=== PATIENT | male | born 1990 | race African-American/Black ===

== ENCOUNTER 2017-05-10 09:02 | Emergency (ER) | payer BC, OTHER ==
[2017-05-10 09:09] VITALS: TEMP 97.8
[2017-05-10] MEDS ORDERED: ACETAMINOPHEN TAB 500 MG TAB PO STA (09:32)
[2017-05-10] MEDS ORDERED: IBUPROFEN 600 MG TAB PO STA (09:32)
[2017-05-10] MEDS ORDERED: DIPH,PERTUS(ACELL)TETVAC-LF 0.5 ML VIAL IM ONE (09:44)
[2017-05-10 10:03] LABS: Appearance,Urine Cloudy (Clear); Bilirubin,Urine Negative (Negative); Blood,Urine Negative (Negative); Color,Urine Yellow; Glucose,Urine (UA) Negative (Negative); Ketones,Urine Negative (Negative); Leukocyte Esterase,Urine Negative (Negative); Mucus,Urine Few /hpf; Nitrite,Urine Negative (Negative); PH, Urine 5.5 (5.0-8.0); Protein,Urine Trace (Negative); RBC,Urine 2 /hpf (0-5); Specific Gravity,Urine 1.013 (1.001-1.035); Urobilinogen,Urine <2.0 mg/dL (<2.0); WBC,Urine 1 /hpf (0-5)
--- NOTE | 2017-05-10 10:57 | XR ---
EXAMINATION TYPE: XR Hip Bilateral and AP pelvis , 5 VIEWS DATE OF EXAM ORDERED: 05/10/2017 HISTORY: Pain. COMPARISON: None. FINDINGS: Osseous structures about the pelvis are normal. No fracture or dislocation is noted about the hips. IMPRESSION: NO ACUTE OSSEOUS LESION.
--- NOTE | 2017-05-10 10:58 | XR ---
EXAMINATION TYPE: XR knee complete LT , 3 VIEWS DATE OF EXAM ORDERED: 05/10/2017 HISTORY: Pain. COMPARISON: None. FINDINGS: No fracture, dislocation or knee joint effusion is seen. IMPRESSION: NO ACUTE OSSEOUS LESION.
--- NOTE | 2017-05-10 10:59 | XR ---
EXAMINATION TYPE: XR lumbosacral spine min 4V , 5 VIEWS DATE OF EXAM ORDERED: 05/10/2017 HISTORY: Pain. COMPARISON: None. FINDINGS: There is a gentle levoscoliosis. Vertebral body height and alignment are maintained. There is no spondylolysis or spondylolisthesis. N o fractures are seen. The facets are unremarkable. The pedicles are intact. IMPRESSION: NO ACUTE OSSEOUS LESION.
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
[2017-05-10 11:41] VITALS: BP 116/70; PULSE 72; RESP 18
== END 2017-05-10 11:42 | disposition home or self-care (01) ==
LOC: EC 09:02
DX: T14.8XXA Other injury of unspecified body region, initial encounter (principal); S70.212A Abrasion, left hip, initial encounter; S80.212A Abrasion, left knee, initial encounter; S00.31XA Abrasion of nose, initial encounter; M54.5 Low back pain; F17.200 Nicotine dependence, unspecified, uncomplicated; Z88.0 Allergy status to penicillin; Z53.29 Procedure and treatment not carried out because of patient's decision for other reasons; V03.90XA Pedestrian on foot injured in collision with car, pick-up truck or van, unspecified whether traffic or nontraffic accident, initial encounter; Y92.89 Other specified places as the place of occurrence of the external cause
CPT/HCPCS: 72110; 73521; 81001; 99284

== ENCOUNTER 2017-05-12 11:00 | Emergency (ER) | payer BC, OTHER ==
[2017-05-12 11:23] VITALS: BP 106/63; PULSE 76; RESP 20; TEMP 98
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
== END 2017-05-12 12:37 | disposition home or self-care (01) ==
LOC: EC 11:00
DX: S70.02XD Contusion of left hip, subsequent encounter (principal); Z88.0 Allergy status to penicillin; F17.200 Nicotine dependence, unspecified, uncomplicated; V03.90XD Pedestrian on foot injured in collision with car, pick-up truck or van, unspecified whether traffic or nontraffic accident, subsequent encounter; Y92.410 Unspecified street and highway as the place of occurrence of the external cause
CPT/HCPCS: 99282

== ENCOUNTER → 2017-06-03 | Outpatient (CLI) | payer BC ==
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
--- NOTE | 2017-06-03 09:13 | XR ---
EXAMINATION TYPE: XR nasal bone DATE OF EXAM: 06/03/2017 COMPARISON: NONE HISTORY: Pain TECHNIQUE: 3 views submitted FINDINGS: There is a linear fracture through the nasal bridge with no significant depression. Ethmoid al plate and maxillary styloid appear intact. Minimal angulation of the fracture line. IMPRESSION: Linear fracture through the nasal bridge with minimal angulation.
== END | disposition home or self-care (01) ==
LOC: RADCTMAIN 07:59
PROVIDERS: ATTEND Family Medicine
DX: S02.2XXA Fracture of nasal bones, initial encounter for closed fracture (principal); G44.309 Post-traumatic headache, unspecified, not intractable; Z88.0 Allergy status to penicillin
CPT/HCPCS: 70160; 70450

== ENCOUNTER 2018-10-05 11:21 | Emergency (ER) | payer BC, OTHER ==
[2018-10-05 12:09] VITALS: RESP 18; TEMP 97.7
[2018-10-05 13:51] VITALS: BP 118/81; PULSE 74
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
== END 2018-10-05 14:43 | disposition left against medical advice (07) ==
LOC: EC 11:21
DX: R06.02 Shortness of breath (principal); R07.89 Other chest pain; R51 Headache; R63.4 Abnormal weight loss; R10.32 Left lower quadrant pain; M54.9 Dorsalgia, unspecified; F17.200 Nicotine dependence, unspecified, uncomplicated; Z88.0 Allergy status to penicillin
CPT/HCPCS: 93005; 99284

== ENCOUNTER 2018-11-19 09:10 | Emergency (ER) | payer BC, OTHER ==
--- NOTE | 2018-11-19 09:34 | ED ---
Chest Pain HPI - General Chief Complaint: Chest Pain Stated Complaint: Chest pain Time Seen by Provider: 11/19/18 09:18 Source: patient, RN notes reviewed, old records reviewed Mode of arrival: ambulatory Limitations: no limitations - History of Present Illness Initial Comments: Patient is a 28-year-old -[place] male. He presents emergency depa rtment today with months of intermittent chest pain, shortness of breath. Patient is a heavy smoker. Patient reports that he also is concerned he may have sexual transmitted infection treatment of that his partner was cheating on him. He also complains of occasional locking up with his hands. Patient states that he left AMA when he was here to months ago for similar complaints. He states he did not see blood work. Patient states that the chest pain to be worse today. He denies any significant fevers or chills or vomiting episodes. He does report weight loss. - Related Data Home Medications Medication Instructions Recorded Confirmed No Known Home Medications 10/05/18 10/05/18 Allergies Allergy/AdvReac Type Severity Reaction Status Date / Time Penicillins Allergy Anaphylaxis Verified 11/19/18 09:15 Review of Systems ROS Statement: Those systems with pertinent positive or pertinent negative responses have been documented in the HPI. ROS Other: All systems not noted in ROS Statement are negative. EKG Findings - EKG Comments: EKG Findings:: EKG performed at 952 shows normal sinus rhythm, ST elevation likely due to early re-pole. Borderline EKG. Ventricular rate of 64 bpm. ND interval is 144 ms. QS duration 84 ms. QT QTc is 384/396 ms. Past Medical History Past Medical History: No Reported History History of Any Multi-Drug Resistant Organisms: None Reported Past Surgical History: No Surgical Hx Reported Past Psychological History: No Psychological Hx Reported Smoking Status: Current every day smoker Past Alcohol Use History: None Reported Past Drug Use History: None Reported General Exam - General Exam Comments Initial Comments: This is a 2-year-old -[place] male. No distress. Limitations: no limitations General appearance: alert, in no apparent distress Head exam: Present: atraumatic, normocephalic, normal inspection Eye exam: Present: normal appearance, PERRL, EOMI. Absent: scleral icterus, conjunctival injection, periorbital swelling ENT exam: Present: normal exam, mucous membranes moist Neck exam: Present: normal inspection. Absent: tenderness, meningismus, lymphadenopathy Respiratory exam: Present: normal lung sounds bilaterally. Absent: respiratory distress, wheezes, rales, rhonchi, stridor Cardiovascular Exam: Present: regular rate, normal rhythm, normal heart sounds. Absent: systolic murmur, diastolic murmur, rubs, gallop, clicks GI/Abdominal exam: Present: soft, normal bowel sounds. Absent: distended, tenderness, guarding, rebound, rigid Extremities exam: Present: normal inspection, full ROM, normal capillary refill. Absent: tenderness, pedal edema, joint swelling, calf tenderness Back exam: Present: normal inspection Neurological exam: Present: alert, oriented X3, CN II-XII intact Psychiatric exam: Present: normal affect, normal mood Skin exam: Present: warm, dry, intact, normal color. Absent: rash Course Vital Signs 11/19/18 09:12 Temperature 97.9 F Pulse Rate 87 Respiratory 20 Rate Blood Pressure 123/82 O2 Sat by Pulse 71 L Oximetry Chest Pain MDM - MDM 20-year-old male presents for concerns of chronic chest pain symptoms. He states as it has coughing. He is a heavy smoker. This time patient's labwork is reviewed and unremarkable. EKG showed early repolarization. Troponin is negative. Patient is also concerned for STDs. Patient has hematuria, but no white blood cells or concern for infection. Discussed he needs to have his urine rechecked. Patient understands treatment plan will comply. Return parameters were discussed. Chest x-rays negative for any acute croup ulnar process. Disposition Clinical Impression: Chest pain, Painless hematuria, Multiple complaints Disposition: HOME SELF-CARE Condition: Good Instructions (If sedation given, give patient instructions): Chest Pain (ED) Additional Instructions: Patient has a close follow-up with primary care physician. Return to the emergency department if any alarming signs or symptoms occur. Is patient prescribed a controlled substance at d/c from ED?: No Referrals: None,Stated [Primary Care Provider] - 1-2 days Trish Slaughter MD [STAFF PHYSICIAN] - 1-2 days Time of Disposition: 11:06
--- NOTE | 2018-11-19 09:44 | XR ---
EXAMINATION TYPE: XR chest 2V DATE OF EXAM: 11/19/2018 COMPARISON: NONE HISTORY: Chest pain TECHNIQUE: Frontal and lateral views of the chest are obtained. FINDINGS: There is no focal air space opacity, pleural effusion, or pneumothorax seen. The cardiac silhouette size is within normal limits. The osseous structures are intact. IMPRESSION: No acute cardiopulmonary process.
[2018-11-19 10:04] LABS: Basophils % (A) 0 %; Eosinophils # (A) 0.1 k/uL (0-0.7); Eosinophils % (A) 3 %; HGB 14.9 gm/dL (13.0-17.5); Lymphocytes # (A) 1.7 k/uL (1.0-4.8); Lymphocytes % (A) 38 %; MCH 31.8 pg (25.0-35.0); MCHC 33.8 g/dL (31.0-37.0); Mean Platelet Volume 7.6; Monocytes # (A) 0.2 k/uL (0-1.0); Monocytes % (A) 4 %; Neutrophils # (A) 2.2 k/uL (1.3-7.7); Neutrophils % (A) 51 %; Platelet Count 215 k/uL (150-450); RBC 4.69 m/uL (4.30-5.90); RDW 13.2 % (11.5-15.5); WBC 4.4 k/uL (3.8-10.6)
[2018-11-19 10:19] LABS: ALT 21 U/L (21-72); AST 24 U/L (17-59); African American GFR (CKD) >90 (>60 ml/min/1.73 sqM); Albumin 4.8 g/dL (3.5-5.0); Alkaline Phosphatase 51 U/L (38-126); Anion Gap 8 mmol/L; Blood Urea Nitrogen 10 mg/dL (9-20); Calcium 9.7 mg/dL (8.4-10.2); Carbon Dioxide 28 mmol/L (22-30); Chloride 109 mmol/L (98-107); Glucose 90 mg/dL (74-99); Potassium 4.1 mmol/L (3.5-5.1); Sodium 145 mmol/L (137-145); Total Bilirubin 0.8 mg/dL (0.2-1.3); Total Protein 7.5 g/dL (6.3-8.2)
[2018-11-19 10:20] LABS: Partial Thromboplastin Time 26.9 sec (22.0-30.0); Prothrombin Time 10.4 sec (9.0-12.0)
[2018-11-19 10:24] LABS: Appearance,Urine Clear (Clear); Bilirubin,Urine Negative (Negative); Blood,Urine Small (Negative); Color,Urine Yellow; Glucose,Urine (UA) Negative (Negative); Ketones,Urine Negative (Negative); Leukocyte Esterase,Urine Negative (Negative); Mucus,Urine Rare /hpf; Nitrite,Urine Negative (Negative); Protein,Urine 1+ (Negative); RBC,Urine 9 /hpf (0-5); Specific Gravity,Urine 1.018 (1.001-1.035); WBC,Urine 2 /hpf (0-5)
[2018-11-19 11:16] VITALS: BP 123/81; PULSE 67; RESP 16; TEMP 98
[2018-11-20 14:03] LABS: C. trachomatis,PCR Negative (Neg,Equiv); Chlamydia trachomatis Source Urine
[2018-11-20 14:04] LABS: N. gonorrhoeae,PCR Negative (Neg,Equiv); Neisseria Source Urine
== END 2018-11-19 11:15 | disposition home or self-care (01) ==
LOC: EC 09:10
DX: R07.9 Chest pain, unspecified (principal); R31.9 Hematuria, unspecified; R94.31 Abnormal electrocardiogram [ECG] [EKG]; R05 Cough; R06.02 Shortness of breath; R63.4 Abnormal weight loss; R29.898 Other symptoms and signs involving the musculoskeletal system; F17.200 Nicotine dependence, unspecified, uncomplicated; Z88.0 Allergy status to penicillin
CPT/HCPCS: 36415; 71046; 80053; 81001; 84484; 85025; 85610; 85730; 87491; 87591; 93005; 99285

== ENCOUNTER 2019-01-14 08:53 | Emergency (ER) | payer OTHER ==
[2019-01-14 09:05] VITALS: RESP 16
[2019-01-14] MEDS ORDERED: ACETAMINOPHEN TAB 500 MG TAB PO STA (09:53)
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
[2019-01-14 11:15] VITALS: BP 143/76; PULSE 76; TEMP 98.9
== END 2019-01-14 11:13 | disposition home or self-care (01) ==
LOC: EC 08:53
DX: S83.91XA Sprain of unspecified site of right knee, initial encounter (principal); F17.200 Nicotine dependence, unspecified, uncomplicated; Z88.0 Allergy status to penicillin; Y04.0XXA Assault by unarmed brawl or fight, initial encounter; Y93.01 Activity, walking, marching and hiking
CPT/HCPCS: 99284

== ENCOUNTER 2020-08-20 22:45 | Emergency (ER) | payer OTHER ==
[2020-08-20] MEDS ORDERED: HYDROmorphone 1 MG/ML 1 ML SYRINGE IVP STA (23:07)
[2020-08-20] MEDS ORDERED: ONDANSETRON 4 MG/2 ML VIAL IVP STA (23:07)
[2020-08-20] MEDS ORDERED: SODIUM CHLORIDE 0.9% 1,000 ML IV STA (23:07)
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
[2020-08-20 23:37] LABS: Basophils % (A) 0 %; Eosinophils # (A) 0.2 k/uL (0-0.7); Eosinophils % (A) 2 %; HCT 43.9 % (39.0-53.0); HGB 15.5 gm/dL (13.0-17.5); Lymphocytes # (A) 2.9 k/uL (1.0-4.8); Lymphocytes % (A) 32 %; MCHC 35.3 g/dL (31.0-37.0); MCV 93.6 fL (80.0-100.0); Mean Platelet Volume 7.2; Monocytes # (A) 0.4 k/uL (0-1.0); Monocytes % (A) 4 %; Neutrophils # (A) 5.7 k/uL (1.3-7.7); Neutrophils % (A) 61 %; Platelet Count 270 k/uL (150-450); RBC 4.69 m/uL (4.30-5.90); RDW 12.7 % (11.5-15.5); WBC 9.3 k/uL (3.8-10.6)
[2020-08-20 23:46] LABS: Partial Thromboplastin Time 22.7 sec (22.0-30.0); Prothrombin Time 10.7 sec (9.0-12.0)
[2020-08-20 23:50] LABS: Potassium 3.7 mmol/L (3.5-5.1)
[2020-08-20 23:51] LABS: ALT 23 U/L (4-49); AST 38 U/L (17-59); African American GFR (CKD) >90 (>60 ml/min/1.73 sqM); Albumin 4.4 g/dL (3.5-5.0); Alcohol <10 mg/dL; Alkaline Phosphatase 51 U/L (38-126); Anion Gap 10 mmol/L; Blood Urea Nitrogen 9 mg/dL (9-20); Calcium 9.1 mg/dL (8.4-10.2); Carbon Dioxide 31 mmol/L (22-30); Chloride 101 mmol/L (98-107); Creatine Kinase 419 U/L (55-170); Glucose 116 mg/dL (74-99); Non-African American GFR(CKD) >90 (>60 ml/min/1.73 sqM); Sodium 142 mmol/L (137-145); Total Bilirubin 0.7 mg/dL (0.2-1.3); Total Protein 7.1 g/dL (6.3-8.2)
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
[2020-08-21 01:13] VITALS: BP 134/99; PULSE 73; RESP 18; TEMP 97.8
== END 2020-08-21 01:11 | disposition home or self-care (01) ==
LOC: EC 22:45
DX: S02.40FA Zygomatic fracture, left side, initial encounter for closed fracture (principal); S00.411A Abrasion of right ear, initial encounter; Z88.0 Allergy status to penicillin; Y04.0XXA Assault by unarmed brawl or fight, initial encounter; Y93.01 Activity, walking, marching and hiking; Y92.480 Sidewalk as the place of occurrence of the external cause
CPT/HCPCS: 80053; 82550; 84484; 85025; 85610; 85730; 72125; 70450; 71260; 74177; 99284; 96374; 96375; 96361; G0480; J2405; J1170; Q9967; 80320

== ENCOUNTER 2020-08-21 06:53 | Emergency (ER) | payer OTHER ==
[2020-08-21 07:03] VITALS: TEMP 98.1
[2020-08-21] MEDS ORDERED: KETOROLAC 15 MG/ML 1 ML VIAL IVP STA (07:24)
[2020-08-21] MEDS ORDERED: ORPHENADRINE 30 MG/ML 2 ML VIAL IVP STA (07:25)
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
[2020-08-21] MEDS ORDERED: LIDOCAINE 5% PATCH TOPICAL STA (08:54)
[2020-08-21 08:59] VITALS: BP 124/87; PULSE 73; RESP 18
--- NOTE | 2020-08-21 09:16 | ED ---
Disposition Clinical Impression: Left rib fracture, Chest wall contusion, Multiple rib fractures Disposition: HOME SELF-CARE Condition: Good Instructions (If sedation given, give patient instructions): Rib Fracture (ED), Contusion in Adults (ED) Additional Instructions: [place] 5/325 #20 sig one every 6 hours when necessary no refills, Motrin 800 mg #20 sig one every 6 hours when necessary pain and Flexeril 10 mg #15 one 3 times a day. Prescription function on the computer is not working at this time. Is patient prescribed a controlled substance at d/c from ED?: No Referrals: None,Stated [Primary Care Provider] - 1-2 days
== END 2020-08-21 09:29 | disposition home or self-care (01) ==
LOC: EC 06:53
DX: S22.42XA Multiple fractures of ribs, left side, initial encounter for closed fracture (principal); F17.200 Nicotine dependence, unspecified, uncomplicated; F41.9 Anxiety disorder, unspecified; F32.9 Major depressive disorder, single episode, unspecified; Z88.0 Allergy status to penicillin
CPT/HCPCS: 96374; 96375; 99284